=== PATIENT | female | born 1995 | race Caucasian/White ===

== ENCOUNTER 2017-11-16 10:41 | Emergency (ER) | payer BC, OTHER | END 2017-11-16 11:48 | disposition home or self-care (01) | LOC: FTE 10:41 | DX: H10.31 Unspecified acute conjunctivitis, right eye (principal) | CPT/HCPCS: 99283 ==

== ENCOUNTER 2018-09-29 08:47 | Emergency (ER) | payer BC ==
[2018-09-29] MEDS: ACETAMINOPHEN 325 MG TAB PO (10:05)
== END 2018-09-29 11:17 | disposition home or self-care (01) ==
LOC: FTE 08:47
DX: J06.9 Acute upper respiratory infection, unspecified (principal)
CPT/HCPCS: 87400; 99283